=== PATIENT | male | born 1965 | race Hispanic/Latino ===

== ENCOUNTER 2021-11-16 19:07 | Emergency (ER) | payer MEDICARE ==
[2021-11-16] MEDS ORDERED: SODIUM CHLORIDE 0.9% 1000 ML 1,000 ML IV ONE (19:20)
[2021-11-16] MEDS ORDERED: LORazepam 2 MG/ML VIAL IV ONE (19:21)
--- NOTE | 2021-11-16 19:25 | Emergency Department Report ---
ED Alcohol HPI - General Stated Complaint: DETOX Time Seen by Provider: 11/16/21 19:15 Source: patient, EMS - History of Present Illness Initial Comments: Patient is 56 years old male with history of hypertension and chronic alcohol abuse. Patient brought to the emergency room from [facility] for evaluation of alcohol withdrawal. Patient stated that last alcohol drink was 4 AM today. He stated that he has been drinking for 7 days straight and he started to stop today. He stated that he went to [facility] first and because of his insurance they referred him to [facility] for outpatient alcohol rehab. Patient is very anxious, showing tremors and tachycardia. Patient denied any visual hallucination. No seizure. Patient also denied any suicidal homicidal ideation. MD Complaint: alcohol withdrawal, desires rehab Time Since Last Drink: 15 -: hour(s) Chronic Alcohol Use: No Previous Visits for Alcohol Intoxication?: Yes Associated Symptoms: tremors Treatments Prior to Arrival: none - Related Data Allergies Allergy/AdvReac Type Severity Reaction Status Date / Time No Known Allergies Allergy Verified 11/16/21 19:28 ED Review of Systems ROS: Stated complaint: DETOX Other details as noted in HPI Comment: All other systems reviewed and negative Constitutional: denies: chills, fever Respiratory: denies: cough, orthopnea, shortness of breath, SOB with exertion, SOB at rest Cardiovascular: palpitations. denies: chest pain Gastrointestinal: denies: abdominal pain, nausea Musculoskeletal: denies: back pain Neurological: denies: headache, weakness, numbness, paresthesias, confusion Psychiatric: anxiety. denies: depression, auditory hallucinations, visual hallucinations, homicidal thoughts, suicidal thoughts ED Physical Exam - General General appearance: alert, in no apparent distress, anxious - Head Head exam: Present: atraumatic, normocephalic, normal inspection - Eye Eye exam: Present: normal appearance - ENT ENT exam: Present: normal exam, normal orophraynx, mucous membranes dry - Neck Neck exam: Present: normal inspection, full ROM. Absent: tenderness, meningismus - Respiratory Respiratory exam: Present: normal lung sounds bilaterally - Cardiovascular Cardiovascular Exam: Present: regular rate, normal rhythm, normal heart sounds - GI/Abdominal GI/Abdominal exam: Present: soft, normal bowel sounds. Absent: distended, tenderness, guarding, rebound, rigid, organomegaly, mass, bruit, pulsatile mass, hernia - Extremities Exam Extremities exam: Present: normal inspection, full ROM, normal capillary refill. Absent: tenderness, pedal edema, joint swelling, calf tenderness - Back Exam Back exam: Present: normal inspection, full ROM. Absent: CVA tenderness (R), CVA tenderness (L) - Neurological Exam Neurological exam: Present: alert, oriented X3, CN II-XII intact, normal gait, reflexes normal. Absent: motor sensory deficit - Psychiatric Psychiatric exam: Present: anxious. Absent: homicidal ideation, suicidal ideation - Skin Skin exam: Present: warm, intact, normal color ED Course Vital Signs 11/16/21 11/16/21 19:24 19:53 Temperature 98.4 F Pulse Rate 90 70 Respiratory 18 22 Rate Blood Pressure 156/103 [Left] O2 Sat by Pulse 99 96 Oximetry ED Medical Decision Making - Lab Data Result diagrams: 11/16/21 19:28 11/16/21 19:28 - EKG Data -: EKG Interpreted by Me EKG shows normal: sinus rhythm Rate: normal - EKG Data Interpretation: no acute changes - Medical Decision Making Patient is 56 years old male with history of hypertension and chronic alcohol abuse. Patient brought to the emergency room from [facility] for evaluation of alcohol withdrawal. Patient stated that last alcohol drink was 4 AM today. He stated that he has been drinking for 7 days straight and he started to stop toda y. He stated that he went to [facility] first and because of his insurance they referred him to [facility] for outpatient alcohol rehab. Patient is very anxious, showing tremors and tachycardia. Patient denied any visual hallucination. No seizure. Patient also denied any suicidal homicidal ideat ion. Patient received Ativan and normal saline. No seizure activity observed in the ER. Patient stated that his symptom is much better. Patient given prescription for Librium and advised to follow-up with his alcohol program as soon as possible. Patient advised to return to the ER if he develop any new symptoms. Critical care attestation.: If time is entered above; I have spent that time in minutes in the direct care of this critically ill patient, excluding procedure time. ED Disposition Clinical Impression: Alcohol withdrawal, Cocaine abuse Disposition: HOME / SELF CARE / HOMELESS Is pt being admited?: No Condition: Stable Instructions: Alcohol Withdrawal Syndrome, [id number], Alcohol Use Disorder, Stimulant Use Disorder-Cocaine Referrals: PRIMARY CARE, [Primary Care Provider] - 3-5 Days
[2021-11-16] MEDS ORDERED: SODIUM CHLORIDE 0.9% 1000 ML 1,000 ML ONE (19:31)
[2021-11-16] MEDS ORDERED: LORazepam 2 MG/ML VIAL ONE (19:31)
[2021-11-16 19:43] LABS: Basophils # (Auto) 0.1 K/mm3 (0.0-0.1); Eosinophils # (Auto) 0.1 K/mm3 (0.0-0.4); Eosinophils % (Auto) 1.3 % (0.0-4.3); Hematocrit 44.4 % (35.5-45.6); Hemoglobin 15.1 gm/dl (11.8-15.2); Lymphocytes # (Auto) 1.4 K/mm3 (1.2-5.4); Lymphocytes % (Auto) 16.9 % (13.4-35.0); Mean Corpuscular HGB Conc 34 % (32-34); Mean Corpuscular Volume 88 fl (84-94); Monocytes # (Auto) 0.4 K/mm3 (0.0-0.8); Monocytes % (Auto) 5.1 % (0.0-7.3); Platelet Count 228 K/mm3 (140-440); Red Blood Count 5.06 M/mm3 (3.65-5.03); Red Cell Distribution Width 14.9 % (13.2-15.2)
[2021-11-16] MEDS ORDERED: LORazepam 2 MG/ML VIAL IV PRN ×2 (20:03)
[2021-11-16 20:04] LABS: BUN/Creatinine Ratio 16; Blood Urea Nitrogen 13 mg/dL (9-20); Calcium 8.8 mg/dL (8.4-10.2); Hemolysis Index 7
[2021-11-16 20:07] LABS: Albumin 4.3 g/dL (3.9-5); Bilirubin,Direct 0.2 mg/dL (0-0.2)
[2021-11-16 21:55] LABS: Bilirubin,Urine NEG (Negative); Blood,Urine MOD (Negative); Color,Urine Yellow (Yellow); Protein,Urine <15 mg/dL mg/dL (Negative); Urobilinogen,Urine < 2.0 mg/dL (<2.0)
[2021-11-16 22:02] LABS: Amphetamine Screen,Urine Negative; Benzodiazepines Screen,Urine Negative; Cannabinoid Screen,Urine Negative; Methadone Screen,Urine Negative; Opiate Screen,Urine Negative
[2021-11-16 22:29] LABS: Cocaine Screen,Urine Positive
[2021-11-17] MEDS: LORazepam 2 MG/ML VIAL IV PRN (10:06)
--- NOTE | 2021-11-17 11:18 | Event Note ---
Date: 11/17/21 Patient seen and examined. He is in no acute distress. Nursing notes, psychiatric notes, and ER documentation reviewed and appreciated. He is a waiting placement for detox pending a Covid swab. Nursing team reports inconsistent presentation, as they report that the patient was endorsing shakes, and received Ativan as per protocol. However, nursing team further endorses that when they evaluated and assessed the patient, he holds out his arm straight, without tremors. When I examined the patient, he denies physical pain, but states that he feels like he is having some tremors. He denies hallucinations. He has minimal tongue fasciculations. He remains medically suitable at this time for disposition to detox. We are awaiting Covid swab results for detox placement. Vital Signs 11/16/21 11/16/21 11/16/21 19:24 19:53 20:01 Temperature 98.4 F Pulse Rate 90 70 90 Respiratory 18 22 14 Rate Blood Pressure Blood Pressure 156/103 [Left] O2 Sat by Pulse 99 96 97 Oximetry 11/16/21 11/16/21 11/16/21 20:15 20:31 20:45 Temperature Pulse Rate 85 69 83 Respiratory 21 21 20 Rate Blood Pressure 156/93 145/99 155/92 Blood Pressure [Left] O2 Sat by Pulse 96 97 97 Oximetry 11/16/21 11/16/21 11/16/21 21:01 21:15 21:31 Temperature Pulse Rate 97 H 88 97 H Respiratory 19 19 24 Rate Blood Pressure 162/92 149/94 149/94 Blood Pressure [Left] O2 Sat by Pulse 98 97 98 Oximetry 11/16/21 11/16/21 11/16/21 22:01 22:15 22:50 Temperature Pulse Rate 88 90 Respiratory 21 20 22 Rate Blood Pressure 152/92 144/94 Blood Pressure [Left] O2 Sat by Pulse 95 96 97 Oximetry 11/16/21 11/16/21 11/16/21 23:01 23:15 23:31 Temperature Pulse Rate 88 86 99 H Respiratory 19 18 20 Rate Blood Pressure 163/100 163/101 157/94 Blood Pressure [Left] O2 Sat by Pulse 95 95 97 Oximetry 11/17/21 11/17/21 11/17/21 00:01 00:45 01:01 Temperature Pulse Rate 65 82 76 Respiratory 19 19 14 Rate Blood Pressure 159/97 146/94 145/96 Blood Pressure [Left] O2 Sat by Pulse 96 96 96 Oximetry 11/17/21 11/17/21 11/17/21 01:31 01:45 02:01 Temperature Pulse Rate 59 L 58 L 90 Respiratory 18 17 16 Rate Blood Pressure 149/95 129/96 152/98 Blood Pressure [Left] O2 Sat by Pulse 95 97 97 Oximetry 11/17/21 11/17/21 11/17/21 02:15 02:31 02:45 Temperature Pulse Rate 71 93 H 91 H Respiratory 18 19 25 H Rate Blood Pressure 151/93 170/98 152/99 Blood Pressure [Left] O2 Sat by Pulse 95 96 95 Oximetry 11/17/21 11/17/21 11/17/21 03:15 03:45 04:01 Temperature Pulse Rate 88 82 79 Respiratory 17 17 19 Rate Blood Pressure 160/98 140/85 139/91 Blood Pressure [Left] O2 Sat by Pulse 94 96 95 Oximetry 11/17/21 11/17/21 11/17/21 04:15 04:31 06:31 Temperature Pulse Rate 84 76 55 L Respiratory 23 15 17 Rate Blood Pressure 133/90 125/98 135/91 Blood Pressure [Left] O2 Sat by Pulse 96 98 94 Oximetry 11/17/21 11/17/21 11/17/21 07:01 07:31 10:12 Temperature 97.6 F Pulse Rate 70 102 H 90 Respiratory 18 28 H 18 Rate Blood Pressure 158/87 170/87 Blood Pressure 161/98 [Left] O2 Sat by Pulse 95 98 Oximetry Lab Results 11/16/21 11/16/21 11/16/21 Range/Units 19:28 19:28 19:28 WBC 8.0 (4.5-11.0) K/mm3 RBC 5.06 H (3.65-5.03) M/mm3 Hgb 15.1 (11.8-15.2) gm/dl Hct 44.4 (35.5-45.6) % MCV 88 (84-94) fl MCH 30 (28-32) pg MCHC 34 (32-34) % RDW 14.9 (13.2-15.2) % Plt Count 228 (140-440) K/mm3 Lymph % (Auto) 16.9 (13.4-35.0) % Stevens % (Auto) 5.1 (0.0-7.3) % Eos % (Auto) 1.3 (0.0-4.3) % Baso % (Auto) 1.0 (0.0-1.8) % Lymph # (Auto) 1.4 (1.2-5.4) K/mm3 Stevens # (Auto) 0.4 (0.0-0.8) K/mm3 Eos # (Auto) 0.1 (0.0-0.4) K/mm3 Baso # (Auto) 0.1 (0.0-0.1) K/mm3 Seg Neutrophils % 75.7 H (40.0-70.0) % Seg Neutrophils # 6.1 (1.8-7.7) K/mm3 Sodium 135 L (137-145) mmol/L Potassium 3.8 (3.6-5.0) mmol/L Chloride 97.0 L (98-107) mmol/L Carbon Dioxide 20 L (22-30) mmol/L Anion Gap 22 mmol/L BUN 13 (9-20) mg/dL Creatinine 0.8 (0.8-1.3) mg/dL Estimated GFR > 60 ml/min BUN/Creatinine Ratio 16 % Glucose 133 H (75-100) mg/dL Calcium 8.8 (8.4-10.2) mg/dL Total Bilirubin (0.1-1.2) mg/dL Direct Bilirubin (0-0.2) mg/dL Indirect Bilirubin mg/dL AST (5-40) units/L ALT (7-56) units/L Alkaline Phosphatase (35-129) units/L Total Protein (6.3-8.2) g/dL Albumin (3.9-5) g/dL Albumin/Globulin Ratio % Urine Color (Yellow) Urine Turbidity (Clear) Urine pH (5.0-7.0) Ur Specific Emerson (1.003-1.030) Urine Protein (Negative) mg/dL Urine Glucose (UA) (Negative) mg/dL Urine Ketones (Negative) mg/dL Urine Blood (Negative) Urine Nitrite (Negative) Urine Bilirubin (Negative) Urine Urobilinogen (<2.0) mg/dL Ur Leukocyte Esterase (Negative) Urine WBC (Auto) (0.0-6.0) /HPF Urine RBC (Auto) (0.0-6.0) /HPF U Epithel Cells (Auto) (0-13.0) /HPF Salicylates < 0.3 L (2.8-20.0) mg/dL Urine Opiates Screen Urine Methadone Screen Acetaminophen (10.0-30.0) ug/mL Ur Barbiturates Screen Ur Phencyclidine Scrn Ur Amphetamines Screen U Benzodiazepines Scrn Urine Cocaine Screen U Marijuana (THC) Screen Drugs of Abuse Note Plasma/Serum Alcohol (0-0.07) % 11/16/21 11/16/21 11/16/21 Range/Units 19:28 19:28 19:28 WBC (4.5-11.0) K/mm3 RBC (3.65-5.03) M/mm3 Hgb (11.8-15.2) gm/dl Hct (35.5-45.6) % MCV (84-94) fl MCH (28-32) pg MCHC (32-34) % RDW (13.2-15.2) % Plt Count (140-440) K/mm3 Lymph % (Auto) (13.4-35.0) % Stevens % (Auto) (0.0-7.3) % Eos % (Auto) (0.0-4.3) % Baso % (Auto) (0.0-1.8) % Lymph # (Auto) (1.2-5.4) K/mm3 Stevens # (Auto) (0.0-0.8) K/mm3 Eos # (Auto) (0.0-0.4) K/mm3 Baso # (Auto) (0.0-0.1) K/mm3 Seg Neutrophils % (40.0-70.0) % Seg Neutrophils # (1.8-7.7) K/mm3 Sodium (137-145) mmol/L Potassium (3.6-5.0) mmol/L Chloride (98-107) mmol/L Carbon Dioxide (22-30) mmol/L Anion Gap mmol/L BUN (9-20) mg/dL Creatinine (0.8-1.3) mg/dL Estimated GFR ml/min BUN/Creatinine Ratio % Glucose (75-100) mg/dL Calcium (8.4-10.2) mg/dL Total Bilirubin 1.00 (0.1-1.2) mg/dL Direct Bilirubin 0.2 (0-0.2) mg/dL Indirect Bilirubin 0.8 mg/dL AST 76 H (5-40) units/L ALT 35 (7-56) units/L Alkaline Phosphatase 94 (35-129) units/L Total Protein 6.8 (6.3-8.2) g/dL Albumin 4.3 (3.9-5) g/dL Albumin/Globulin Ratio 1.7 % Urine Color (Yellow) Urine Turbidity (Clear) Urine pH (5.0-7.0) Ur Specific Emerson (1.003-1.030) Urine Protein (Negative) mg/dL Urine Glucose (UA) (Negative) mg/dL Urine Ketones (Negative) mg/dL Urine Blood (Negative) Urine Nitrite (Negative) Urine Bilirubin (Negative) Urine Urobilinogen (<2.0) mg/dL Ur Leukocyte Esterase (Negative) Urine WBC (Auto) (0.0-6.0) /HPF Urine RBC (Auto) (0.0-6.0) /HPF U Epithel Cells (Auto) (0-13.0) /HPF Salicylates (2.8-20.0) mg/dL Urine Opiates Screen Urine Methadone Screen Acetaminophen 5.0 L (10.0-30.0) ug/mL Ur Barbiturates Screen Ur Phencyclidine Scrn Ur Amphetamines Screen U Benzodiazepines Scrn Urine Cocaine Screen U Marijuana (THC) Screen Drugs of Abuse Note Plasma/Serum Alcohol < 0.01 (0-0.07) % 11/16/21 11/16/21 Range/Units Unknown Unknown WBC (4.5-11.0) K/mm3 RBC (3.65-5.03) M/mm3 Hgb (11.8-15.2) gm/dl Hct (35.5-45.6) % MCV (84-94) fl MCH (28-32) pg MCHC (32-34) % RDW (13.2-15.2) % Plt Count (140-440) K/mm3 Lymph % (Auto) (13.4-35.0) % Stevens % (Auto) (0.0-7.3) % Eos % (Auto) (0.0-4.3) % Baso % (Auto) (0.0-1.8) % Lymph # (Auto) (1.2-5.4) K/mm3 Stevens # (Auto) (0.0-0.8) K/mm3 Eos # (Auto) (0.0-0.4) K/mm3 Baso # (Auto) (0.0-0.1) K/mm3 Seg Neutrophils % (40.0-70.0) % Seg Neutrophils # (1.8-7.7) K/mm3 Sodium (137-145) mmol/L Potassium (3.6-5.0) mmol/L Chloride (98-107) mmol/L Carbon Dioxide (22-30) mmol/L Anion Gap mmol/L BUN (9-20) mg/dL Creatinine (0.8-1.3) mg/dL Estimated GFR ml/min BUN/Creatinine Ratio % Glucose (75-100) mg/dL Calcium (8.4-10.2) mg/dL Total Bilirubin (0.1-1.2) mg/dL Direct Bilirubin (0-0.2) mg/dL Indirect Bilirubin mg/dL AST (5-40) units/L ALT (7-56) units/L Alkaline Phosphatase (35-129) units/L Total Protein (6.3-8.2) g/dL Albumin (3.9-5) g/dL Albumin/Globulin Ratio % Urine Color Yellow (Yellow) Urine Turbidity Clear (Clear) Urine pH 7.0 (5.0-7.0) Ur Specific Emerson 1.005 (1.003-1.030) Urine Protein <15 mg/dl (Negative) mg/dL Urine Glucose (UA) Neg (Negative) mg/dL Urine Ketones Tr (Negative) mg/dL Urine Blood Mod (Negative) Urine Nitrite Neg (Negative) Urine Bilirubin Neg (Negative) Urine Urobilinogen < 2.0 (<2.0) mg/dL Ur Leukocyte Esterase Neg (Negative) Urine WBC (Auto) 1.0 (0.0-6.0) /HPF Urine RBC (Auto) 2.0 (0.0-6.0) /HPF U Epithel Cells (Auto) < 1.0 (0-13.0) /HPF Salicylates (2.8-20.0) mg/dL Urine Opiates Screen Negative Urine Methadone Screen Negative Acetaminophen (10.0-30.0) ug/mL Ur Barbiturates Screen Negative Ur Phencyclidine Scrn Negative Ur Amphetamines Screen Negative U Benzodiazepines Scrn Negative Urine Cocaine Screen Positive U Marijuana (THC) Screen Negative Drugs of Abuse Note Disclamer Plasma/Serum Alcohol (0-0.07) %
--- NOTE | 2021-11-18 11:23 | Emergency Department Report ---
Blank Doc - Documentation Documentation: Patient endorses suicidal thoughts this morning. He is still slightly tremulo us. We are awaiting psychiatric disposition. Patient states that he was told he needed to be admitted to someplace. We will await psychiatric evaluation and disposition.
--- NOTE | 2021-11-18 11:40 | Consultation ---
History of Present Illness - Reason for Consult Consult date: 11/18/21 Reason for consult: suicidal - History of Present Psychiatric Illness ED Note: Patient is 56 years old male with history of hypertension and chronic alcohol abuse. Patient brought to the emergency room from [facility] for evaluation of alcohol withdrawal. Patient stated that last alcohol drink was 4 AM today. He stated that he has been drinking for 7 days straight and he started to stop today. He stated that he went to [facility] first and because of his insurance they referred him to [facility] for outpatient alcohol rehab. Patient is very anxious, showing tremors and tachycardia. Patient denied any visual hallucination. No seizure. Patient also denied any suicidal homicidal ideation. The patient is a 56 year male with history of bipolar and alcohol use disorder. In my encounter with the patient, he is calm, alert and oriented x3. The patient reports multiple psychiatric inpatient detox admissions. The patient reports that he started using alcohol at age 12; states longest sobriety period as 8 months. He states he relapsed about 2 weeks ago, stating that he consumes a fifth of Whiskey and 6 packs of beer daily; he last drank 2 days ago. The patient reports being depressed with suicidal ideation and a plan " I just want to be killed by the police or run into traffic." He presents with anxiety, moderate tremors and cravings for alcohol. He denies hallucinations. MD Complaint: alcohol withdrawal, desires rehab PAST PSYCHIATRIC HISTORY Diagnoses: Bipolar Suicide attempts or Self-harm behavior: Yes Prior psychiatric hospitalizations: Yes Substance Abuse history: Cocaine, alcohol Previous psychiatric medications tried: Seroquel, Cymbalta Outpatient treatment: Yes PAST MEDICAL HISTORY: None reported Family Psychiatric History: None reported or documented SOCIAL HISTORY Marital Status: Living Arrangements: Homeless Employment Status: Unemployed Access to guns/weapons: Denies Education: 2 year college History of Abuse: none reported Legal History: none REVIEW OF SYSTEMS Constitutional: Negative for weight loss ENT: Negative for stridor Respiratory: Negative for cough or hemoptysis All other systems reviewed and are negative MENTAL STATUS EXAMINATION General Appearance and Behavior: Age appropriate, not wearing appropriate clothes, fair eye contact, Cooperation: Engaged Psychomotor Behavior: Psychomotor normal Mood: Depressed Affect and affective range: Congruent with stated mood Thought Process: Goal directed Thought Content: Suicidal Speech: Normal tone and pace Suicidal Ideation: Yes Homicidal Ideation: Denies Hallucinations: Denies Delusions:None Insight and Judgment: Limited insight and judgment Memory: Normal Attention: divided attention impaired Orientation: Alert, oriented Assessment: (1) Major depressive disorder (2) Alcohol use disorder 1013 Treatment Plan Continue home medications. CIWA Cymbalta 30mg po daily Seroquel 100mg po QHS Risks, benefits and alternatives of medications discussed with the patient, questions answered and consent obtained from patient. PSYCHOTHERAPY: Supportive psychotherapy provided MEDICAL: Per primary team DELIRIUM PRECAUTIONS: Please re-orient patient frequently, keep lights on during the day, and minimize benzodiazepines and opiates as these medications could worsen patient's confusion. GROUP WORKER: per primary DISPOSITION: Recommend acute psychiatric inpatient treatment. Will follow. Thanks Thank you for the consult. Case discussed with Dr. Pena who agrees with current disposition Medications and Allergies Medications and Allergies Allergies Allergy/AdvReac Type Severity Reaction Status Date / Time No Known Allergies Allergy Verified 11/16/21 19:28 Home Medications Medication Instructions Recorded Confirmed Last Taken Type chlordiazePOXIDE [Librium] 25 mg PO Q8H #15 capsule 11/16/21 Unknown Rx Duloxetine HCl 60 mg PO DAILY 11/18/21 11/18/21 Unknown History Gabapentin [Neurontin] 400 mg PO Q8HR 11/18/21 11/18/21 Unknown History Quetiapine Fumarate [Seroquel Xr] 300 mg PO HS 11/18/21 11/18/21 Unknown History cloNIDine [Catapres] 0.2 mg PO TID 11/18/21 11/18/21 Unknown History methocarbamoL [Methocarbamol] 750 mg PO Q6HR 11/18/21 11/18/21 Unknown History Active Meds: Active Medications Haloperidol Lactate (Haloperidol Lactate 5 Mg/1 Ml Inj) 5 mg IM Q6HR PRN PRN Reason: Agitation Lorazepam (Lorazepam 2 Mg/Ml Vial) 2 mg IV Q1HR PRN PRN Reason: CIWA-Ar 8-15 Last Admin: 11/17/21 10:06 Dose: 2 mg Lorazepam (Lorazepam 2 Mg/Ml Vial) 4 mg IV Q1HR PRN PRN Reason: CIWA-Ar 16-25 Lorazepam (Lorazepam 2 Mg/Ml Vial) 4 mg IV Q15MIN PRN PRN Reason: CIWA-Ar >25 Lorazepam (Lorazepam 2 Mg/Ml Vial) 2 mg IM Q4HR PRN PRN Reason: Agitation Mental Status Exam - Vital signs Last Vital Signs Temp 98.5 F 11/18/21 08:18 Pulse 85 11/18/21 08:18 Resp 14 11/18/21 08:18 BP 170/93 11/18/21 08:18 Pulse Ox 95 11/18/21 08:18 Results Result Diagrams: 11/16/21 19:28 11/16/21 19:28 All other labs normal.
[2021-11-18] MEDS ORDERED: DULoxetine 30 MG CAP PO SCH (14:00)
[2021-11-18] MEDS ORDERED: cloNIDine 0.2 MG TAB PO ONE (21:15)
[2021-11-19] MEDS: QUEtiapine 100 MG TAB PO SCH (03:20)
[2021-11-19] MEDS: LORazepam 2 MG/ML VIAL IV PRN (06:16)
--- NOTE | 2021-11-19 09:49 | Progress Note ---
Subjective - Reason for Consult Consult date: 11/19/21 Reason for consult: SI - Chief Complaint Chief complaint: The patient was seen this morning. he continues to endorse suicidal ideation with a plan to run into traffic. REVIEW OF SYSTEMS Constitutional: Negative for weight loss ENT: Negative for stridor Respiratory: Negative for cough or hemoptysis All other systems reviewed and are negative MENTAL STATUS EXAMINATION General Appearance and Behavior: Age appropriate, not wearing appropriate clothes, fair eye contact, Cooperation: Engaged Psychomotor Behavior: Psychomotor normal Mood: Depressed Affect and affective range: Congruent with stated mood Thought Process: Goal directed Thought Content: Suicidal Speech: Normal tone and pace Suicidal Ideation: Yes Homicidal Ideation: Denies Hallucinations: Denies Delusions:None Insight and Judgment: Limited insight and judgment Memory: Normal Attention: divided attention impaired Orientation: Alert, oriented Assessment: (1) Major depressive disorder (2) Alcohol use disorder 1013 Treatment Plan Continue home medications. CIWA Cymbalta 30mg po daily Seroquel 100mg po QHS Risks, benefits and alternatives of medications discussed with the patient, questions answered and consent obtained from patient. PSYCHOTHERAPY: Supportive psychotherapy provided MEDICAL: Per primary team DELIRIUM PRECAUTIONS: Please re-orient patient frequently, keep lights on during the day, and minimize benzodiazepines and opiates as these medications could worsen patient's confusion. CAR CARDER: per primary DISPOSITION: Recommend acute psychiatric inpatient treatment. Will follow. Thanks Thank you for the consult. Case discussed with Dr. Pena who agrees with current disposition Medications and Allergies Medications and Allergies Mental Status Exam - Vital signs Last Vital Signs Temp 98.5 F 11/18/21 08:18 Pulse 86 11/19/21 05:44 Resp 16 11/19/21 05:44 BP 157/117 11/19/21 05:44 Pulse Ox 98 11/19/21 05:44
[2021-11-19] MEDS: LORazepam 2 MG/ML VIAL IM PRN ×2 (09:57→20:19)
[2021-11-19] MEDS: HALOPERIDOL LACTATE 5 MG/1 ML INJ IM PRN (09:58)
[2021-11-19] MEDS: amLODIPine 5 MG TAB PO SCH (09:58)
--- NOTE | 2021-11-19 11:14 | Emergency Department Report ---
Blank Doc - Documentation Documentation: Patient is resting this morning. There is no evidence of overt withdrawal. He still endorses suicidal ideation and we are awaiting psychiatric placement.
[2021-11-20] MEDS: QUEtiapine 100 MG TAB PO SCH ×2 (01:23→23:19)
[2021-11-20] MEDS: HALOPERIDOL LACTATE 5 MG/1 ML INJ IM PRN (01:23)
[2021-11-20] MEDS: amLODIPine 5 MG TAB PO SCH (09:51)
--- NOTE | 2021-11-20 10:31 | Progress Note ---
Subjective - Reason for Consult Consult date: 11/20/21 Reason for consult: SI - Chief Complaint Chief complaint: The patient was seen this morning. The patient presents with mild tremors and cravings for alcohol. He continues to endorse suicidal ideation with a plan to get shot. REVIEW OF SYSTEMS Constitutional: Negative for weight loss ENT: Negative for stridor Respiratory: Negative for cough or hemoptysis All other systems reviewed and are negative MENTAL STATUS EXAMINATION General Appearance and Behavior: Age appropriate, not wearing appropriate clothes, fair eye contact, Cooperation: Engaged Psychomotor Behavior: Psychomotor normal Mood: Depressed Affect and affective range: Congruent with stated mood Thought Process: Goal directed Thought Content: Suicidal Speech: Normal tone and pace Suicidal Ideation: Yes Homicidal Ideation: Denies Hallucinations: Denies Delusions:None Insight and Judgment: Limited insight and judgment Memory: Normal Attention: divided attention impaired Orientation: Alert, oriented Assessment: (1) Major depressive disorder (2) Alcohol use disorder 1013 Treatment Plan Continue home medications. CIWA Cymbalta 30mg po daily Seroquel 100mg po QHS Risks, benefits and alternatives of medications discussed with the patient, questions answered and consent obtained from patient. PSYCHOTHERAPY: Supportive psychotherapy provided MEDICAL: Per primary team DELIRIUM PRECAUTIONS: Please re-orient patient frequently, keep lights on during the day, and minimize benzodiazepines and opiates as these medications could worsen patient's confusion. 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 Will follow. Thanks Thank you for the consult. Case discussed with Dr. Pena who agrees with current disposition Medications and Allergies Medications and Allergies Mental Status Exam - Vital signs Last Vital Signs Temp 97.2 F L 11/20/21 08:53 Pulse 91 H 11/20/21 09:51 Resp 20 11/20/21 08:53 BP 153/102 11/20/21 09:51 Pulse Ox 96 11/20/21 08:54
--- NOTE | 2021-11-20 12:05 | Emergency Department Report ---
Blank Doc - Documentation Documentation: Patient still endorses suicidal thoughts. We are still awaiting on psychiatric placement.
[2021-11-21] MEDS: amLODIPine 5 MG TAB PO SCH (10:07)
--- NOTE | 2021-11-21 10:26 | Progress Note ---
Subjective - Reason for Consult Consult date: 11/21/21 Reason for consult: si - Chief Complaint Chief complaint: The patient was seen this morning. Tremors have subsided but the patient is craving for alcohol. He continues to endorse suicidal ideation with a plan to get shot. he states he does not feel safe going home. REVIEW OF SYSTEMS Constitutional: Negative for weight loss ENT: Negative for stridor Respiratory: Negative for cough or hemoptysis All other systems reviewed and are negative MENTAL STATUS EXAMINATION General Appearance and Behavior: Age appropriate, not wearing appropriate cloth es, fair eye contact, Cooperation: Engaged Psychomotor Behavior: Psychomotor normal Mood: Depressed Affect and affective range: Congruent with stated mood Thought Process: Goal directed Thought Content: Suicidal Speech: Normal tone and pace Suicidal Ideation: Yes Homicidal Ideation: Denies Hallucinations: Denies Delusions:None Insight and Judgment: Limited insight and judgment Memory: Normal Attention: divided attention impaired Orientation: Alert, oriented Assessment: (1) Major depressive disorder (2) Alcohol use disorder 1013 Treatment Plan Continue home medications. CIWA Cymbalta 30mg po daily Seroquel 100mg po QHS Risks, benefits and alternatives of medications discussed with the patient, questions answered and consent obtained from patient. PSYCHOTHERAPY: Supportive psychotherapy provided MEDICAL: Per primary team DELIRIUM PRECAUTIONS: Please re-orient patient frequently, keep lights on during the day, and minimize benzodiazepines and opiates as these medications could worsen patient's confusion. FRONT MAN: per primary DISPOSITION: Recommend acute psychiatric inpatient treatment. Will follow. Thanks Thank you for the consult. Case discussed with Dr. Pena who agrees with current disposition Medications and Allergies Medications and Allergies Mental Status Exam - Vital signs Last Vital Signs Temp 97.7 F 11/21/21 10:10 Pulse 89 11/21/21 10:10 Resp 18 11/21/21 10:10 BP 152/92 11/21/21 10:10 Pulse Ox 97 11/21/21 10:11
[2021-11-21] MEDS ORDERED: NON-FORMULARY EACH (Duloxetine Hcl [Duloxetine Hcl] 60 MG Capsule.Dr) PO SCH (10:30)
[2021-11-21] MEDS: DULoxetine 30 MG CAP PO SCH (10:49)
[2021-11-21] MEDS: GABAPENTIN 400 MG CAP PO SCH ×2 (13:37→21:45)
--- NOTE | 2021-11-21 14:23 | Event Note ---
No acute issues patient is medically clear for psychiatric care. Covid negative.
[2021-11-21] MEDS: LORazepam 2 MG/ML VIAL IV PRN (15:24)
[2021-11-21] MEDS: QUEtiapine 100 MG TAB PO SCH (21:45)
[2021-11-21] MEDS: HALOPERIDOL LACTATE 5 MG/1 ML INJ IM PRN (21:47)
[2021-11-22] MEDS: GABAPENTIN 400 MG CAP PO SCH (05:35)
[2021-11-22 09:29] VITALS: BP 131/77
[2021-11-22] MEDS: DULoxetine 30 MG CAP PO SCH (09:41)
[2021-11-22] MEDS: amLODIPine 5 MG TAB PO SCH (09:42)
--- NOTE | 2021-11-22 10:09 | Emergency Department Report ---
Blank Doc - Documentation Documentation: Patient is resting this morning. We are still awaiting psychiatric placement. There is no evidence of alcohol withdrawal.
== END 2021-11-22 11:11 | disposition home or self-care (01) ==
LOC: ED 19:07
DX: F10.239 Alcohol dependence with withdrawal, unspecified (principal); R45.851 Suicidal ideations; F14.10 Cocaine abuse, uncomplicated; Z20.822 Contact with and (suspected) exposure to COVID-19; I10 Essential (primary) hypertension
CPT/HCPCS: 36415; 80048; 80076; 80307; 81001; 85025; 96361; 96372; 96374; 96376; 99284; J1630; J2060; J7030; U0003; 80320; 96375; Q0162; G0480